=== PATIENT | female | born 1995 | race Caucasian/White ===

== ENCOUNTER 2024-12-18 12:16 | Emergency (ER) | payer BC, OTHER ==
[2024-12-18 12:30] VITALS: TEMP 98.6; BMI 21.6
[2024-12-18 13:15] LABS: URINE APPEARANCE CLEAR; URINE BILIRUBIN NEGATIVE (NEGATIVE); URINE COLOR YELLOW; URINE GLUCOSE (UA) NEGATIVE (NEGATIVE); URINE KETONE NEGATIVE (NEGATIVE); URINE LEUK ESTERASE NEGATIVE (NEGATIVE); URINE NITRITE NEGATIVE (NEGATIVE); URINE PROTEIN NEGATIVE (NEGATIVE); URINE UROBILINOGEN 0.2 mg/dL (0.2-1.0)
[2024-12-18 13:18] VITALS: BP 103/70; PULSE 75; RESP 17
[2024-12-18 13:18] LABS: ABSOLUTE IMMATURE GRANULOCYTES 0.01 x10^3/uL (0.0-0.031); BASOPHILS # 0.03 x10^3/uL (0.01-0.08); EOSINOPHIL % 0.8 % (0.7-5.8); EOSINOPHILS # 0.04 x10^3/uL (0.04-0.36); MCHC 33.5 g/dl (32.2-35.5); MEAN CELL VOLUME 89.4 fl (79.4-94.8); MEAN PLT VOLUME 10.3 fl (9.4-12.3); MONOCYTE # 0.42 x10^3/uL (0.24-0.86); MONOCYTE % 8.5 % (4.7-12.5); RDW 11.2 % (12.1-16.5)
[2024-12-18] MEDS: LACTATED RINGERS SOLUTION 1000 ML INFUS.BAG IV ONE ×2 (13:28→15:16)
[2024-12-18 13:37] LABS: INR 1.1 (0.83-1.09); PROTHROMBIN TIME (PATIENT) 12.1 SEC (9.7-13.0)
[2024-12-18 13:40] LABS: ACTIVATED PTT 28.6 SECONDS (25.2-36.5)
[2024-12-18 14:02] LABS: GLUCOSE,RANDOM 74.0 mg/dL (74-106)
[2024-12-18 14:03] LABS: TOT PROT 7.1 g/dl (6.4-8.2)
[2024-12-18 14:04] LABS: CO2 21.0 mmol/L (21-32)
[2024-12-18 14:06] LABS: ALK PHOS 34.0 U/L (40-150)
[2024-12-18 14:08] LABS: SGOT/AST 27.0 U/L (5-34); SGPT/ALT 17.0 U/L (0-55)
[2024-12-18 14:09] LABS: CREATININE 0.76 mg/dL (0.55-1.3)
== END 2024-12-18 17:20 | disposition home or self-care (01) ==
LOC: JER 12:16
DX: R00.1 Bradycardia, unspecified (principal); R42 Dizziness and giddiness
CPT/HCPCS: 36415; 71046-TC-FY; 80053; 81003; 83735; 84100; 84439; 84443; 84484; 84703; 85025; 85610; 85730; 86618; 86850; 86900; 86901; 87086; 93005; 93010; 93306-TC; 99285-25